=== PATIENT | female | born 1965 ===

== ENCOUNTER 2020-07-22 10:21 | Outpatient (CLI) | payer OTHER | END 2020-07-22 10:32 | disposition home or self-care (01) | LOC: RAD 10:21 | PROVIDERS: ATTEND Physical Medicine & Rehabilitation | DX: M16.12 Unilateral primary osteoarthritis, left hip (principal); M54.6 Pain in thoracic spine; M54.5 Low back pain; M54.2 Cervicalgia; M75.32 Calcific tendinitis of left shoulder ==

== ENCOUNTER → 2020-09-05 | Outpatient (CLI) | payer OTHER | END | disposition home or self-care (01) | LOC: RAD 10:29 | PROVIDERS: ATTEND Physical Medicine & Rehabilitation | DX: M53.3 Sacrococcygeal disorders, not elsewhere classified (principal) ==